=== PATIENT | male | born 1980 | race Hispanic/Latino ===

== ENCOUNTER 2020-09-12 13:21 | Emergency (ER) | payer OTHER ==
[~2020-09-12] VITALS: Ht 177.8 cm; Wt 69.0 kg
[2020-09-12] MEDS ORDERED: KEFLEX500 M1 PO (15:41)
[2020-09-12 15:50] VITALS: BP 129/74
== END 2020-09-12 15:50 | disposition home or self-care (01) | DRG 605 ==
LOC: ED 13:21
PROC: 0HQHXZZ Repair Right Upper Leg Skin, External Approach (ICD-10-PCS; principal; 2020-09-12)
DX: S71.131A Puncture wound without foreign body, right thigh, initial encounter (principal); W11.XXXA Fall on and from ladder, initial encounter; Y93.89 Activity, other specified; Y92.74 Orchard as the place of occurrence of the external cause; Y99.0 Civilian activity done for income or pay

== ENCOUNTER 2020-09-26 08:51 | Emergency (ER) | payer OTHER ==
[~2020-09-26 08:51] MED LIST: KEFLEX500 M1 PO
[2020-09-26 11:10] VITALS: BP 129/74
== END 2020-09-26 11:10 | disposition home or self-care (01) | DRG 950 ==
LOC: ED 08:51
DX: S71.102D Unspecified open wound, left thigh, subsequent encounter (principal); X58.XXXD Exposure to other specified factors, subsequent encounter